=== PATIENT | female | born 1960 | race American Indian/Alaskan Native ===

== ENCOUNTER 2018-12-26 13:03 | Emergency (ER) | payer MEDICAID, OTHER, SELFPAY ==
[2018-12-26 13:31] VITALS: BP 162/80; PULSE 78; RESP 14; TEMP 36.6; O2SAT 97; BMI 55.7
--- NOTE | 2018-12-26 14:21 | ED.ALLEREA ---
HPI - Allergic Reaction <[facility] - Last Filed: 12/26/18 21:26> General Chief complaint: Allergic Reaction Stated complaint: stung by horsefly, allergic yesterday Time Seen by Provider: 12/26/18 13:27 Source: patient and family Mode of arrival: ambulatory Limitations: no limitations History of Present Illness HPI narrative: The patient is a 58-year-old female with history of morbid obesity who presents with a chief complaint of an allergic reaction. She states that she had an allergic reaction to bee sting yesterday on the back of her knee. 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 She states that she took some Benadryl and allowed it to ?relax out.She complains of overall itching. She denies any fevers. She states she feels as though her tongue is swollen. She denies any nausea vomiting or diarrhea. She has not taken anything other than Benadryl. Related Data Allergies Allergy/AdvReac Type Severity Reaction Status Date / Time codeine Allergy Verified 12/26/18 13:34 gabapentin Allergy Verified 12/26/18 13:34 NSAIDS (Non-Steroidal Allergy Verified 12/26/18 13:34 Anti-Inflamma pregabalin [From Lyrica] Allergy Verified 12/26/18 13:34 Review of Systems <[facility] - Last Filed: 12/26/18 21:26> Review of Systems GENERAL: Denies chills, fatigue, malaise, fever, sweats. HEENT: Denies sinus pain, ear pain, sore throat, difficulty swallowing, dizziness. RESPIRATORY: See HPI CARDIOVASCULAR: Denies chest pain, palpitations, orthopnea, edema, GASTROINTESTINAL: Denies nausea, vomiting, abdominal pain, diarrhea, constipation, melena. : Denies dysuria, frequency, incontinence, hematuria, urinary retention. MUSCULOSKELETAL: denies weakness, joint pain, or bony pain SKIN: D see HPI NEUROLOGIC: Denies weakness, headache, numbness, change in speech, confusion, seizures, incoordination. PSYCHIATRIC: No concerning psychosocial issues. 12 point review of systems is negative except for those stated above PFSH <[facility] - Last Filed: 12/26/18 21:26> Medical History (Updated 12/26/18 @ 21:23 by CATHERINE Salas) Obesity (Acute) Exam <CATHERINE Salas - Last Filed: 12/26/18 21:26> Narrative Exam Narrative: GENERAL: Morbidly obese female in no acute distress HEAD: Atraumatic. Normocephalic. No temporal or scalp tenderness. EYES: Pupils equal round and reactive. Extraocular motions intact. No scleral icterus. No injection or drainage. ENT: Nose without bleeding, purulent drainage or septal hematoma. Throat without erythema, tonsillar hypertrophy or exudate. Uvula midline. Airway patent. No swelling of the tongue or oropharynx NECK: Trachea midline. No JVD or lymphadenopathy. Supple, nontender, no meningeal signs. CARDIOVASCULAR: Regular rate and rhythm RESPIRATORY: Clear to auscultation. Breath sounds equal bilaterally. No wheezes, rales, or rhonchi. No accessory muscle use. No nasal flaring. No stridor. Speaking in full sentences. GASTROINTESTINAL: Abdomen soft, non-tender, nondistended. No hepato-splenomegaly, or palpable masses. No guarding. EXTREMITIES: No clubbing, cyanosis, or edema. No joint tenderness, effusion, or edema noted. BACK: Nontender without deformity or crepitance. No flank tenderness. NEURO: AOx3. SKIN: No evidence of staying on back of left knee, no hives, no erythema. Initial Vital Signs Initial Vital Signs: Vital Signs Temperature 97.8 F 12/26/18 13:31 Pulse Rate 78 12/26/18 13:31 Respiratory Rate 14 12/26/18 13:31 Blood Pressure 162/80 H 12/26/18 13:31 Pulse Oximetry 97 12/26/18 13:31 <Ellie Rice DO - Last Filed: 12/27/18 19:49> Initial Vital Signs Initial Vital Signs: Vital Signs Temperature 97.8 F 12/26/18 13:31 Pulse Rate 78 12/26/18 13:31 Respiratory Rate 14 12/26/18 13:31 Blood Pressure 162/80 H 12/26/18 13:31 Pulse Oximetry 97 12/26/18 13:31 Course <CATHERINE Salas - Last Filed: 12/26/18 21:26> Orders Ordered: Discontinued Medications Methylprednisolone (Solu-Medrol) 40 mg INJ NOW ONE Stop: 12/26/18 14:26 Last Admin: 12/26/18 14:49 Dose: 40 mg Vital Signs - 8 hr 12/26/18 13:31 12/26/18 14:52 Temperature 97.8 F Pulse Rate 78 70 Respiratory Rate 14 18 Blood Pressure 162/80 H Blood Pressure [Left Arm] 158/88 H Pulse Oximetry 97 98 <Ellie Rice DO - Last Filed: 12/27/18 19:49> Orders Ordered: Discontinued Medications Methylprednisolone (Solu-Medrol) 40 mg INJ NOW ONE Stop: 12/26/18 14:26 Last Admin: 12/26/18 14:49 Dose: 40 mg Vital Signs - 8 hr 12/26/18 13:31 12/26/18 14:52 Temperature 97.8 F Pulse Rate 78 70 Respiratory Rate 14 18 Blood Pressure 162/80 H Blood Pressure [Left Arm] 158/88 H Pulse Oximetry 97 98 MDM - Allergic Reaction <CATHERINE Salas - Last Filed: 12/26/18 21:26> MDM Narrative Medical decision making narrative: The patient is a 58-year-old female who presents with a chief complaint of an allergic reaction. She has no evidence of an allergic reaction on exam. I did offer oral steroids, which she repeatedly refused. I stated that this could help with the itching and allergic response. She adamantly refusing, but relented to IM Solu-Medrol. I discussed at length continue use of antihistamines. She is in no respiratory distress, has no hives, and no swelling of the face lips or tongue. She has been hemodynamically stable throughout her stay in the emergency department. I encouraged her to follow up with primary care physician. Discussed coming back to the ER for any acute concerns such as chest pain, shortness of breath etc Discharge Plan Departure Patient Disposition: Home Clinical Impression: Insect sting Qualifiers: Encounter type: initial encounter Injury intent: accidental or unintentional Qualified Code(s): T63.481A - Toxic effect of venom of other arthropod, accidental (unintentional), initial encounter Discharge Date/Time: 12/26/18 15:03 Interventions: ED Discharge Assessment Last Done: 12/26/18 15:02 Instructions: How to Care for an Insect Bite or Sting, Insect Bites (Alternative Therapy), DI for Insect Allergy, DI for Insect Bites and Stings Activity Restrictions/Additional Instructions: We have given you a single dose of steroids as an injection. I suggest continuing Benadryl, H1 brent as well as ranitidine, and H2 brent as your unable to tolerate steroids. Please follow up with primary care provider in the next few days. Please come back to the emergency department for any acute concerns such as chest pain or shortness of breath. <Ellie Rice DO - Last Filed: 12/27/18 19:49> Cosign ED Attending Cosignature Attestation: I was immediately available in the department for consultation. This documentation has been reviewed and I agree with assessment and plan. Supervised by Ellie Rice DO
[2018-12-26 14:52] VITALS: BP 158/88; PULSE 70; RESP 18; O2SAT 98
== END 2018-12-26 15:03 | disposition home or self-care (01) ==
PROVIDERS: Emergency Provider Nurse Practitioner Family
DX: T63.481A Toxic effect of venom of other arthropod, accidental (unintentional), initial encounter (principal)
CPT/HCPCS: 96372; 99282; 99283; J2920